=== PATIENT | male | born 1940 | race Caucasian/White ===

== ENCOUNTER → 2016-08-14 | Outpatient (CLI) | payer MEDICARE ==
--- NOTE | 2016-08-14 14:52 | XR ---
AP pelvis HISTORY: Prostate carcinoma staging Frontal view of the pelvis on 2 images. No comparisons Bone mineralization, joint spaces and alignment are relatively maintained, some joint space loss and remodeling present in the left hip compatible with osteoarthritis. Probable vascular calcifications w ithin the pelvis. Degenerative disc changes in the visualized spine. IMPRESSION: Osteoarthritis, degenerative disc disease.
== END | disposition home or self-care (01) ==
LOC: RADXRMAIN 13:00
PROVIDERS: ATTEND Urology
DX: C61 Malignant neoplasm of prostate (principal); M81.0 Age-related osteoporosis without current pathological fracture
CPT/HCPCS: 72170

== ENCOUNTER → 2016-08-22 | Outpatient (CLI) | payer MEDICARE ==
[2016-08-22 10:17] LABS: EKG EKG PERFORMED
[2016-08-22 11:11] LABS: Basophils % (A) 0 %; CH 33.2; CHCM 35.4; Eosinophils # (A) 0.1 k/uL (0-0.7); Eosinophils % (A) 1 %; HCT 45.8 % (39.0-53.0); HDW 2.76; HGB 15.7 gm/dL (13.0-17.5); Luc # (Auto) 0.24; Luc % (Auto) 3; Lymphocytes # (A) 2.3 k/uL (1.0-4.8); Lymphocytes % (A) 26 %; MCH 32.3 pg (25.0-35.0); MCHC 34.2 g/dL (31.0-37.0); MCV 94.4 fL (80.0-100.0); Mean Platelet Volume 8.8; Monocytes # (A) 0.6 k/uL (0-1.0); Monocytes % (A) 7 %; Neutrophils # (A) 5.4 k/uL (1.3-7.7); Neutrophils % (A) 63 %; RBC 4.85 m/uL (4.30-5.90); WBC 8.7 k/uL (3.8-10.6); WBC (Perox) 9.24
[2016-08-22 12:03] LABS: Anion Gap 12 mmol/L; Blood Urea Nitrogen 12 mg/dL (9-20); Calcium 9.4 mg/dL (8.4-10.2); Carbon Dioxide 26 mmol/L (22-30); Chloride 102 mmol/L (98-107); Glucose 153 mg/dL (74-99); Non-African American GFR(MDRD) >60 (>60 ml/min/1.73 sqM); Potassium 4.1 mmol/L (3.5-5.1); Sodium 140 mmol/L (137-145)
== END | disposition home or self-care (01) ==
LOC: LABPAT 09:54
PROVIDERS: ATTEND Urology
DX: Z01.810 Encounter for preprocedural cardiovascular examination (principal); C61 Malignant neoplasm of prostate; I10 Essential (primary) hypertension; E78.00 Pure hypercholesterolemia, unspecified; R35.0 Frequency of micturition
CPT/HCPCS: 80048; 85025; 86850; 86900; 86901; 87086; 93005

== ENCOUNTER 2016-08-29 05:52 | Day surgery (SDC) | payer MEDICARE ==
[2016-08-21 12:36] VITALS: BMI 32.3
[~2016-08-29 05:52] MED LIST: ceFAZolin 2 GM in SODIUM CHLORIDE 0.9% 100 ML IVPB ONE
[2016-08-29] MEDS ORDERED: MIDAZOLAM 2 MG/2 ML VIAL IV PRN (05:57)
[2016-08-29] MEDS ORDERED: ONDANSETRON 4 MG/2 ML VIAL IVP ONE (05:57)
[2016-08-29] MEDS ORDERED: HYDROmorphone 1 MG/ML 1 ML SYRINGE IVP PRN ×2 (05:57→13:19)
[2016-08-29] MEDS ORDERED: HEPARIN SODIUM,PORCINE 5,000 UNIT/ML 1 ML VIAL SQ ONE (06:20)
[2016-08-29] MEDS ORDERED: LIDOCAINE 1% 20 ML VIAL (10MG/ML) FOR IV START INTRADERMA ONE (06:47)
[2016-08-29] MEDS: LACTATED RINGERS 1,000 ML IV SCH (06:49)
[2016-08-29] MEDS ORDERED: NEOSTIGMINE 1 MG/ML 10 ML VIAL ONE (07:32)
[2016-08-29] MEDS ORDERED: HYDROmorphone (PF) 1 MG/ML ONE ×2 (07:32)
[2016-08-29] MEDS ORDERED: PHENYLEPHRINE-0.9% NACL SYG 1 MG/10 ML SYRINGE ONE (07:32)
[2016-08-29] MEDS ORDERED: fentaNYL (PF) 50 MCG/ML 2 ML AMP ONE (07:32)
[2016-08-29] MEDS ORDERED: PROPOFOL 10 MG/ML 20 ML VIAL IV ONE (07:32)
[2016-08-29] MEDS ORDERED: LIDOCAINE 1% INJ 10MG/ML (20 ML MDV) ONE (07:32)
[2016-08-29] MEDS ORDERED: SUCCINYLCHOLINE CHLORIDE 100 MG/5 ML SYR IV ONE (07:32)
[2016-08-29] MEDS ORDERED: GLYCOPYRROLATE 0.2 MG/ML 2 ML VIAL ONE (07:32)
[2016-08-29] MEDS ORDERED: VECURONIUM 10 MG VIAL IV ONE (07:32)
[2016-08-29] MEDS ORDERED: MIDAZOLAM 2 MG/2 ML VIAL ONE (07:32)
[2016-08-29] MEDS ORDERED: ePHEDrine 50 MG/ML 1 ML AMP ONE (07:32)
[2016-08-29] MEDS ORDERED: BUPIVACAINE (PF) 0.25% 30 ML VIAL SQ ONE ×3 (08:45→12:40)
[2016-08-29] MEDS ORDERED: LACTATED RINGERS 1,000 ML IV ONE (10:59)
[2016-08-29] MEDS ORDERED: ONDANSETRON 4 MG/2 ML VIAL IVP PRN (13:17)
--- NOTE | 2016-08-29 13:26 | P.OP ---
Date of Procedure: 08/29/16 Preoperative Diagnosis: Adenocarcinoma of the prostate, clinical stage TIc NX M0 Postoperative Diagnosis: Same Procedure(s) Performed: Right Nerve Sparing Robotic-assisted Laparoscopic Prostatectomy (RALP) With Bilateral Pelvic Lymphadenectomy Anesthesia: NICOLE Surgeon: Kameron Lester Estimated Blood Loss (ml): 800 IV fluids (ml): 1,500 Pathology: other (Prostate, seminal vesicles, bilateral pelvic lymph nodes) Condition: stable Disposition: PACU Indications for Procedure: He is a 76-year-old male with recently diagnosed prostate cancer. He also reports mild lower urinary tract symptoms. I had a lengthy discussion with the patient and his family regarding alternative treatment options. There is considerable longevity in his family, and he has elected to undergo a right nerve-sparing RALP. He understands that this offers him his best chance of long- term cure, along with resolution of his voiding symptoms. However, I made clear to have that most patients his age choose to proceed with radiation therapy or even active surveillance, though he is felt to be a suboptimal candidate for the latter. He is very familiar with alternative treatment options and wishes to proceed with surgery. He is aware of the likelihood of postoperative erectile dysfunction. Operative Findings: No evidence of extraprostatic disease Description of Procedure: The patient was taken in the operating room and placed in the dorsal lithotomy position, with his legs supported in Kayden stirrups. He was carefully positioned on a beanbag for stability. The abdomen and external genitalia were prepped and draped sterilely. A Vanessa catheter was inserted. The Veress needle was passed through the anterior abdominal wall immediately cephalad to the umbilicus, and insufflation was performed to a pressure of 20 mm Hg. Once insufflation was performed, the Veress needle was removed and a supraumbilical incision was made, through which a 12 mm camera port was placed. Under camera guidance, 3 8 mm robotic ports were placed, 2 on the left and one on the right. An additional 12 mm port was placed on the right lateral side for use as an periodontal assistant port. A 5 mm port was placed to the right of the camera port for suction. The patient was placed in Trendelenburg position, and docking was then performed to the da Rogelio system utilizing a 4-arm approach. The abdomen was examined. The sigmoid colon was mobilized out of the pelvis. The peritoneum was incised lateral to the medial umbilical ligaments bilaterally , exposing the pubis. The peritoneum was then incised across the midline, allowing the bladder flap to be taken down. The endopelvic fascia was opened bilaterally, and muscular attachments from the urogenital diaphragm were swept away from the prostate. Bilateral pelvic lymphadenectomies were performed in the standard fashion. The peritoneal incisions were extended in a cephalad direction, and the vas deferens were divided bilaterally. Margins of dissection were the bifurcation of the iliac vessels proximally, the circumflex iliac vein distally, the external iliac artery laterally, and the obturator nerve medially. A combination of sharp and blunt dissection was used. Care was taken to avoid any neurovascular injury, and the use of monopolar electrocautery was avoided immediately adjacent to neurovascular structures. The lymphatic package was clipped distally. No enlarged lymph nodes were encountered. There were no complications. The vesical neck was incised transversely, down to the lumen. The Vanessa catheter was brought out through the anterior vesical neck incision and was used for traction. The posterior aspect of the vesical neck was incised, such that the full-thickness of the vesical neck was divided. The anterior layer of the Denonvilliers fascia was incised, exposing the vas deferens. Each were isolated and divided. Next, each of the seminal vesicles were dissected away from adjacent tissues, and vascular attachments were cauterized and divided. The posterior leaf of Denonvilliers fascia was incised transversely, allowing entry into the plane between the prostate and rectum. With lateral spreading, this plane was developed down to the apex. This exposed the lateral vascular pedicles bilaterally. These were clipped and divided in an antegrade fashion, down to the apex. The use of electrocautery was avoided to prevent thermal damage to the nerves. On the right side, the plane of dissection was immediately adjacent to the prostate to preserve the right neurovascular bundle. On the left side, given the volume of disease, the plane of dissection was away from the prostate and no attempt was made to preserve the left neurovascular bundle The remaining apical attachments were swept away from the prostate. The dorsal venous complex was incised, as well as periurethral tissue. This resulted in more bleeding than is typical, and the dorsal venous complex was sutured using a V lock suture in a running fashion. Excellent hemostasis was attained, and the dissection of the periurethral tissue was completed. At this point, only the urethra remained intact. This was transected immediately distal to the prostatic apex using cold scissors. The specimen was placed within a specimen bag. The pelvis was examined. A small amount of oozing was noted from the right neurovascular bundle. This was controlled using a V lock suture in a figure-of- eight fashion. A V-Loc suture was then used to place the Mat stitch, incorporating the rhabdosphincter and the edge of Denonvilliers fascia. This allowed the bladder to be taken down to the urethra, leaving the vesical neck immediately adjacent to the urethra. The vesicourethral anastomosis was then performed using a V-Loc suture in a running fashion. The vesical neck was larger in caliber than was the urethra, and the remaining anterior bladder defect was closed in a running fashion after completing the vesicourethral anastomosis. An 18-Slovenian Vanessa catheter was then placed and approximately 150 mL of 0.9 normal saline were instilled into the bladder. No extravasation of irrigant from the vesicourethral anastomosis was noted. Hemostasis was noted at this time to be excellent, and it was thus felt that a drain was unnecessary. The patient was returned to the supine position. Undocking was performed, and the specimen bag sutures were passed through the camera port. After removing all the ports and allowing all of the CO2 to be released from the peritoneal cavity, the camera port incision was enlarged to allow removal of the surgical specimen. The fascia of this incision was then closed using 0 Vicryl suture in an interrupted [id number] fashion. The fascia of the 12 mm periodontal assistant port was closed using 0 Vicryl suture. Each of the skin incisions were then closed using 4-0 Monocryl suture in a subcuticular fashion. Marcaine was injected at each of the incision sites. Dermabond was applied to each incision. The Vanessa catheter was connected to gravity drainage. All sponge and needle counts were correct. The patient tolerated the procedure well was taken to the recovery room in stable condition.
[2016-08-29] MEDS ORDERED: HYDROcodone/APAP 5-325MG 1 EACH TAB PO PRN (14:30)
[2016-08-29] MEDS: DEXTROSE 5%-0.45% NACL 1,000 ML IV SCH ×2 (15:56→22:48)
[2016-08-29] MEDS: HEPARIN SODIUM,PORCINE 5,000 UNIT/ML 1 ML VIAL SQ SCH (21:35)
[2016-08-30] MEDS: DEXTROSE 5%-0.45% NACL 1,000 ML IV SCH (05:22)
[2016-08-30 07:04] LABS: Glucose,Whole Blood 246 mg/dL (75-99)
[2016-08-30 07:42] VITALS: BP 136/78; PULSE 102; RESP 20; TEMP 98.2
[2016-08-30] MEDS: HYDROcodone/APAP 5-325MG 1 EACH TAB PO PRN ×2 (07:49→12:51)
[2016-08-30] MEDS: MULTIVITAMINS, THERA 1 EACH TAB PO SCH ×2 (07:51→07:53)
[2016-08-30] MEDS: HEPARIN SODIUM,PORCINE 5,000 UNIT/ML 1 ML VIAL SQ SCH (07:51)
[2016-08-30] MEDS ORDERED: LOSARTAN 50 MG TAB PO SCH (09:00)
[2016-08-30] MEDS ORDERED: ATORVASTATIN 40 MG TAB PO SCH (09:00)
[2016-08-30] MEDS ORDERED: CHLORTHALIDONE 25 MG TAB PO SCH (09:00)
--- NOTE | 2016-08-30 09:11 | P.DS ---
Providers Attending physician: Kameron Lester Primary care physician: Stated None Hospital Course: The patient was admitted to the hospital 08/29/2016 for robotic-assisted prostatectomy by . The surgery was uneventful. His postoperative course is uneventful. He ambulated last night. He is tolerating food this morning. His examination is unremarkable. He'll be discharged home later this morning. He'll resume all his home medication. He is been given a prescription of for [place]. He will follow-up on 09/08/[address] Bennett in ' absence. His condition is good. His pathology report is pending. Plan - Discharge Summary New Discharge Prescriptions: Hydrocodone/Acetaminophen [[place] 7.5-325] 1 each PO Q4HR PRN #30 tab PRN Reason: Pain Control Discharge Medication List Atorvastatin [Lipitor] 40 mg PO DAILY 07/10/14 [History] Chlorthalidone 12.5 mg PO DAILY 07/10/14 [History] Multivitamins, Thera [Multivitamin] 1 each PO DAILY 07/10/14 [History] Aspirin 81 mg PO DAILY 08/23/15 [History] Losartan [Cozaar] 50 mg PO DAILY 08/23/15 [History] Hydrocodone/Acetaminophen [[place] 7.5-325] 1 each PO Q4HR PRN #30 tab 08/30/16 [ Rx] Follow up Appointment(s)/Referral(s): Jimmy Bennett MD [STAFF PHYSICIAN] - 09/08/16 Patient Instructions/Handouts: Robot Assisted Laparoscopic Prostatectomy (DC) Activity/Diet/Wound Care/Special Instructions: Home with Vanessa, leg and overnight bag. Please instruct. Patient may shower. May resume all his medications.
[2016-08-30 12:01] LABS: Glucose,Whole Blood 170 mg/dL (75-99)
== END 2016-08-30 13:17 | disposition home or self-care (01) ==
LOC: OR 05:52 → 4MS4W 13:36 → OR 08-30 13:17
PROVIDERS: ATTEND Urology
DX: C61 Malignant neoplasm of prostate (principal); C77.5 Secondary and unspecified malignant neoplasm of intrapelvic lymph nodes; N40.0 Benign prostatic hyperplasia without lower urinary tract symptoms; I10 Essential (primary) hypertension; E78.00 Pure hypercholesterolemia, unspecified; E66.9 Obesity, unspecified; Z68.32 Body mass index [BMI] 32.0-32.9, adult; Z79.82 Long term (current) use of aspirin; Z79.899 Other long term (current) drug therapy; Z87.891 Personal history of nicotine dependence
CPT/HCPCS: 55866; 38571; 88307; 88309; J2250; J1644 ×2; J2710; J0690; J2405; J2001; J3010; J1170; J2370; J0330; J2704; 86850; 86900; 86901

== ENCOUNTER → 2018-03-19 | Outpatient (CLI) | payer MEDICARE ==
[2018-03-19 07:42] LABS: Appearance,Urine Clear (Clear); Bilirubin,Urine Negative (Negative); Blood,Urine Negative (Negative); Color,Urine Yellow; Glucose,Urine (UA) Negative (Negative); Ketones,Urine Negative (Negative); Leukocyte Esterase,Urine Negative (Negative); Nitrite,Urine Negative (Negative); Protein,Urine Negative (Negative); Specific Gravity,Urine 1.017 (1.001-1.035); Urobilinogen,Urine <2.0 mg/dL (<2.0)
[2018-03-19 08:01] LABS: HCT 40.9 % (39.0-53.0); HGB 13.6 gm/dL (13.0-17.5); MCH 31.7 pg (25.0-35.0); MCHC 33.2 g/dL (31.0-37.0); MCV 95.6 fL (80.0-100.0); Platelet Count 165 k/uL (150-450); RBC 4.28 m/uL (4.30-5.90); RDW 13.1 % (11.5-15.5); WBC 6.5 k/uL (3.8-10.6)
[2018-03-19 08:14] LABS: Partial Thromboplastin Time 25.5 sec (22.0-30.0); Prothrombin Time 9.8 sec (9.0-12.0)
[2018-03-19 08:29] LABS: ALT 35 U/L (21-72); AST 29 U/L (17-59); Albumin 3.9 g/dL (3.5-5.0); Alkaline Phosphatase 77 U/L (38-126); Anion Gap 8 mmol/L; Blood Urea Nitrogen 19 mg/dL (9-20); Calcium 9.5 mg/dL (8.4-10.2); Carbon Dioxide 26 mmol/L (22-30); Chloride 107 mmol/L (98-107); Glucose 112 mg/dL (74-99); Potassium 4.3 mmol/L (3.5-5.1); Sodium 141 mmol/L (137-145); Total Bilirubin 0.9 mg/dL (0.2-1.3); Total Protein 6.7 g/dL (6.3-8.2)
== END | disposition home or self-care (01) ==
LOC: LABPAT 07:22
PROVIDERS: ATTEND Orthopaedic Surgery
DX: Z01.812 Encounter for preprocedural laboratory examination (principal)
CPT/HCPCS: 36415; 80053; 81003; 85027; 85610; 85730; 87070

== ENCOUNTER 2018-03-30 07:00 | Inpatient (IN) | payer MEDICARE ==
[2018-03-19 10:42] VITALS: BMI 28.1
[~2018-03-30 07:00] MED LIST changes: +ACETAMINOPHEN TAB 500 MG TAB PO ONE; +DEXAMETHASONE SOD PHOSPHATE 10 MG/ML 1 ML VIAL IV ONE; +HYDROmorphone 0.5 MG/0.5 ML SYRINGE IVP PRN; +LACTATED RINGERS 1,000 ML IV SCH; +MELOXICAM 7.5 MG TAB PO ONE; +ONDANSETRON 4 MG/2 ML VIAL IVP ONE; +ROPIVACAINE 246.25 MG, EPINEPHrine 0.5 MG, KETOROLAC 30 MG, cloNIDine HCL/PF 80 MCG, WA... MISCELLANE ONE; +TRANEXAMIC ACID 1,000 MG in SODIUM CHLORIDE 0.9% 50 ML IVPB ONE; -ceFAZolin 2 GM in SODIUM CHLORIDE 0.9% 100 ML IVPB ONE; +ceFAZolin IN SWFI 2 GM/20 ML SYRINGE IVP ONE
[2018-03-30] MEDS ORDERED: NALOXONE 0.4 MG/ML 1 ML VIAL IV PRN (08:43)
[2018-03-30] MEDS ORDERED: DIAZEPAM 5 MG TAB PO PRN ×2 (08:43)
[2018-03-30] MEDS ORDERED: hydrOXYzine PAMOATE 25 MG CAP PO PRN (08:43)
[2018-03-30] MEDS ORDERED: MAGNESIUM HYDROXIDE 2,400 MG/10 ML CUP PO PRN (08:43)
[2018-03-30] MEDS ORDERED: ONDANSETRON 4 MG/2 ML VIAL IVP PRN (08:43)
[2018-03-30] MEDS ORDERED: HYDROmorphone 1 MG/ML 1 ML SYRINGE IVP PRN ×3 (08:43)
[2018-03-30 09:07] LABS: Glucose,Whole Blood 125 mg/dL (75-99)
[2018-03-30] MEDS ORDERED: HEPARIN SODIUM,PORCINE 10,000 UNIT/ML 1 ML VIAL ONE (09:15)
[2018-03-30] MEDS ORDERED: diphenhydrAMINE 50 MG/ML 1 ML VIAL ONE (09:15)
[2018-03-30] MEDS ORDERED: SODIUM CHLORIDE 0.9% IRRIG 1,000 ML BTL IRRIGATION ONE (09:15)
[2018-03-30] MEDS ORDERED: PROPOFOL 10 MG/ML 20 ML VIAL IV ONE (09:15)
[2018-03-30] MEDS ORDERED: SODIUM CHLORIDE 0.9% 100 ML BAG ONE (09:15)
[2018-03-30] MEDS ORDERED: TRANEXAMIC ACID 1,000 MG/10 ML VIAL ONE (09:15)
[2018-03-30] MEDS ORDERED: fentaNYL (PF) 50 MCG/ML 2 ML AMP ONE (09:15)
[2018-03-30] MEDS ORDERED: MIDAZOLAM 2 MG/2 ML VIAL ONE (09:15)
[2018-03-30] MEDS ORDERED: ceFAZolin 3,000 MG in SODIUM CHLORIDE 0.9% IRRIGATIO 3,000 ML IRRIGATION ONE (09:49)
[2018-03-30] MEDS ORDERED: LACTATED RINGERS 1,000 ML IV ONE (10:09)
--- NOTE | 2018-03-30 10:43 | P.OP ---
Date of Procedure: 03/30/18 Preoperative Diagnosis: Severe osteoarthritis left hip Postoperative Diagnosis: Severe osteoarthritis left hip Procedure(s) Performed: Left total hip arthroplasty with a direct anterior approach Implants: Pineda and nephew Polarstem size 8 standard Pined[employer] Nephew R3, 3 hole acetabular shell, 54 mm [employer]ined[employer] Nephew reflection 6.5 mm cancellus screw, 20 mm 2 [employer]ined[employer]hew R3, XLPE 20 acetabular liner [employer]ined[employer] Nephew Oxinium femoral head 36 m, +4 All components were press-fit. The articulation is Oxinium on polyethylene. Anesthesia: spinal Surgeon: Petros Padilla Teaching Manager #1: Kim Benoit Estimated Blood Loss (ml): 300 (125 mL returned with Cell Saver) Pathology: other (Femoral head) Condition: stable Disposition: PACU Indications for Procedure: After failure of conservative treatment we discussed the surgical and nonsurgical treatment options at length. Patient wishes to proceed with a total hip arthroplasty with a direct anterior approach. Complications specific to this procedure were discussed at length, including but not limited to infection, leg length discrepancy, dislocation, and nerve injury. Patient is aware of all these complications and informed consent was obtained Operative Findings: The operative findings are consistent with severe osteoarthritis of the left hip Description of Procedure: Patient was seen and evaluated in the preoperative area, consent was reviewed, and the surgical site was marked with a skin marker. Patient was then brought to the operating room and given prophylactic antibiotics intravenously. 1 g of Tranexamic acid was also given. A spinal anesthetic was administered by the anesthesia department. The patient was then placed on the Amber table with the bony prominences well-padded. The hip area was then prepped and draped in usual sterile fashion. A universal timeout was then performed, which confirmed the patient's name, surgical site, ALLERGIES, and procedure being performed. Next the incision site was located at 1 cm distal and 1 cm lateral to the anterior superior iliac spine. The skin and subcutaneous tissues were sharply incised. Incision was carefully dissected down to the fascia overlying the tensor fascia valdemar muscle. This fascia was then incised in line with the incision. Next, using blunt finger dissection, the tensor fascia valdemar muscle was dissected off its investing fascia. The muscle was then carefully retracted laterally with a cobra retractor over the lateral neck of the femur. Next, the circumflex vessels were identified and cauterized using the AquaMantis device. The anterior hip capsule was then exposed. The capsule was then opened and an inverted T fashion. Cobra retractors were then placed intracapsularly. The proximal femur was then visualized. The femoral neck was then osteotomized appropriate level above the lesser trochanter. Small amount of traction was placed with the Amber table. A small wedge of bone was then removed from the remaining femoral head. Next, using a corkscrew femoral head was easily removed from the acetabulum. On gross visual inspection, the femoral head had complete loss of articular cartilage in multiple periarticular osteophytes. Attention was then turned to the acetabulum. the acetabulum was exposed and any remaining labrum was excised. Sequential reaming of the acetabulum was performed using fluoroscopic guidance. When the appropriate size was reached, a trial was then placed. The position and fit of the trial was checked with fluoroscopy. The trial was then removed. Then, using fluoroscopic guidance, the final implant was impacted at 20 of anteversion and 40 of abduction, and fully seated in the acetabulum. 2 screws were then placed in the acetabulum. Again fluoroscopy was used to check position of the screws. Next, the liner was then impacted, with a 20 elevated liner located in the anterior superior quadrant. Component locking was confirmed. Attention was then directed to the femur. With the aid of the Amber table, the femur was externally rotated to approximately 130, extended, and abducted under the opposite leg. A side hook was then placed under the proximal femur, and the side hook elevator was used to elevate the proximal femur. Retractors were then placed. A capsular release was performed, as well as a release of the conjoined tendon, which afforded excellent visualization of the proximal femur. Next, a box osteotome was used to lateralize the proximal femur. A drop forge hand was then used to locate the femoral canal. Sequential broaching was then performed with appropriate size which afforded excellent fixation in the proximal femur. A trial was then placed with appropriate head and neck, and the hip was gently reduced with the aid of the Amber table. Fluoroscopy was then used to check position of the components, as well as to ensure equal leg lengths. The hip was then gently dislocated and the trials were then removed. Final implants were then impacted and the hip was again reduced. Final fluoroscopic x-rays confirmed that the components were in anatomic position, as well as equal leg lengths. The hip was also taken through range of motion, and found to be stable. The hip was then copiously irrigated with antibiotic solution with pulsatile lavage. The hip was then irrigated with Irrisept solution. The soft tissues were then injected with a ropivacaine solution, which consisted of 246.25 mg of ropivacaine, 0.5 mg of epinephrine, 30 mg of Toradol, 80 g of clonidine, and 48.45 mL of sterile water, for a total of 100 mL of fluid injected. A second dose of 1 g of Tranexamic acid was also given. the fascia was then closed with 2-0 strata fix suture. The subcutaneous tissue was closed with 3-0 Vicryl. The subcuticular tissue was closed with 3-0 strata fix suture. The skin was then closed with Dermabond glue and a sterile silver dressing. The patient was then transferred to the recovery room in stable condition. The engineer first assistant TONO Dailey was required due to the complexity of surgery, and the need for skilled manager surgical for positioning, draping, exposure, retraction, and closure of the wound.
[2018-03-30 10:57] VITALS: RESP 16
--- NOTE | 2018-03-30 11:02 | FL ---
Fluoroscopy HISTORY: Left hip arthroplasty 35 seconds fluoroscopy time supplied to the referring clinician. 2 intraoperative C-arm images docum ent the procedure. See dictated report from orthopedic surgery.
--- NOTE | 2018-03-30 11:06 | XR ---
Limited left hip HISTORY: Left hip arthroplasty 2 intraoperative C-arm images document the procedure.
[2018-03-30 11:15] LABS: Glucose,Whole Blood 139 mg/dL (75-99)
--- NOTE | 2018-03-30 11:15 | XR ---
EXAMINATION TYPE: XR Hip Limited LT DATE OF EXAM: 03/30/2018 COMPARISON: NONE HISTORY: Postop TECHNIQUE: One view submitted. FINDINGS: There is a prosthetic hip in near anatomic alignment. There is soft tissue edema and emphysema. IMPRESSION: 1. Postoperative change. Appears in near-anatomic alignment.
[2018-03-30] MEDS: SODIUM CHLORIDE 0.9% 1,000 ML IV SCH ×2 (12:24→23:55)
[2018-03-30] MEDS: ASPIRIN 325 MG TAB PO SCH ×2 (12:24→22:16)
--- NOTE | 2018-03-30 15:11 | P.CONS ---
History of Present Illness - Reason for Consult Consult date: 03/30/18 Medical management - History of Present Illness This is a 77-year-old male patient of Dr. Choudhury with past history for diabetes mellitus type 2, hyperlipidemia, hypertension, prostate cancer status post prostatectomy on Lupron injections under the care of Dr. kristen urban. Patient has been brought into the hospital in a care of Dr. Padilla and is status post left total hip arthroplasty, anterior approach. Patient denies any nausea or vomiting at this time. Pain is controlled. Blood pressure is running 117/58 which patient states this is around his normal. He denies having any chest pain or shortness of breath. Review of Systems All systems: negative Constitutional: Denies chills, Denies fever, Denies poor appetite, Denies weight loss Eyes: denies blurred vision, denies pain Ears, nose, mouth and throat: Denies headache, Denies mouth pain, Denies sore throat Cardiovascular: Denies chest pain, Denies dyspnea on exertion, Denies shortness of breath, Denies syncope Respiratory: Denies cough, Denies cough with sputum, Denies dyspnea, Denies excessive sputum, Denies hemoptysis Gastrointestinal: Denies abdominal pain, Denies diarrhea, Denies loss of appetite, Denies nausea, Denies vomiting Genitourinary: Denies dysuria Musculoskeletal: Denies frequent falls, Denies myalgias Integumentary: Reports wounds, Denies pruritus, Denies rash Neurological: Denies numbness, Denies weakness Psychiatric: Denies anxiety, Denies depression Endocrine: Denies fatigue, Denies weight change Past Medical History Past Medical History: Cancer, Diabetes Mellitus, Hyperlipidemia, Hypertension, Osteoarthritis (OA), Prostate Disorder Additional Past Medical History / Comment(s): hx prostate ca History of Any Multi-Drug Resistant Organisms: None Reported Past Surgical History: Joint Replacement Additional Past Surgical History / Comment(s): BILAT TKA, COLONOSCOPY, PROSTATECTOMY, left total hip arthroplasty anterior approach. Past Anesthesia/Blood Transfusion Reactions: No Reported Reaction Smoking Status: Former smoker Additional Past Alcohol Use History / Comment(s): Patient was a smoker for a brief period in the 1960s at less than one half pack per day. No illicit drug use. Occasional alcohol use. - Past Family History Father Family Medical History: Myocardial Infarction ([place]) Mother Family Medical History: Diabetes Mellitus Additional Family Medical History / Comment(s): Mother has history of hypertension. He denies any history of diabetes cancer or strokes in the family. Brother(s) Additional Family Medical History / Comment(s): Patient has one brother with history of cancer from Agent [place] exposure in [place]. Daughter(s) Additional Family Medical History / Comment(s): She has 5 sons and 1 daughter with no major medical problems. Medications and Allergies Home Medications Medication Instructions Recorded Confirmed Type Atorvastatin [Lipitor] 40 mg PO DAILY 07/10/14 03/30/18 History Multivitamins, Thera [Multivitamin 1 each PO DAILY 07/10/14 03/30/18 History (formulary)] Aspirin 81 mg PO DAILY 08/23/15 03/30/18 History Losartan [Cozaar] 50 mg PO QAM 08/23/15 03/30/18 History Lupron 1 dose INJ Q180D 03/19/18 03/30/18 History metFORMIN HCL [Glucophage] 500 mg PO BID 03/19/18 03/30/18 History Hydrocodone/Acetaminophen [[place] 1 tab PO Q4HR PRN 03/30/18 03/30/18 History 7.5-325] Allergies Allergy/AdvReac Type Severity Reaction Status Date / Time No Known Allergies Allergy Verified 03/19/18 10:34 Physical Exam Vitals: Vital Signs Temp Pulse Pulse Resp BP BP Pulse Ox 03/30/18 11:33 51 L 16 132/64 99 03/30/18 11:20 54 L 16 126/57 95 03/30/18 11:05 51 L 16 124/59 97 03/30/18 10:50 97.5 F L 57 L 16 142/65 97 03/30/18 08:40 98.4 F 72 18 153/71 Intake and Output 03/29/18 03/30/18 03/30/18 22:59 06:59 14:59 Intake Total 1351 Output Total 300 Balance 1051 Intake: IV 1351 Output: Estimated Blood Loss 300 Gen: This is a 77-year-old male. He is in bed and appears to be comfortable and in no acute distress. HEENT: Head is atraumatic, normocephalic. Pupils equal, round. Sclerae is anicteric. NECK: Supple. No JVD. No lymphadenopathy. No thyromegaly. LUNGS: Clear to auscultation. No wheezes or rhonchi. No intercostal retractions. HEART: Regular rate and rhythm. No murmur. ABDOMEN: Soft. Bowel sounds are present. No masses. No tenderness. EXTREMITIES: No pedal edema. No calf tenderness. All dressing in place of the left hip NEUROLOGICAL: Patient is awake, alert and oriented x3. Cranial nerves 2 through 12 are grossly intact. Results Labs: Abnormal Lab Results - Last 24 Hours (Table) 03/30/18 03/30/18 Range/Units 08:50 11:13 POC Glucose (mg/dL) 125 H 139 H (75-99) mg/dL Assessment and Plan Plan: 1. Osteoarthritis status post left total hip arthroplasty, anterior approach. Continue current pain management per Dr. Padilla, PT and OT per orthopedics. Continue incentive spirometry to reduce incidence of atelectasis and hospital- acquired pneumonia. Patient is on aspirin for DVT prophylaxis. 2. Diabetes mellitus type 2. Metformin will be on hold. Continue NovoLog scale before meals and at bedtime. 3. Hypertension. Continue losartan 50 mg every morning, hold for systolic less than 110. 4. Hyperlipidemia. Continue atorvastatin 40 mg daily. 5. History of prostate cancer under the care of Dr. Bennett. Patient is to complete Lupron injection April of this year. 6. GI prophylaxis. Pepcid. Discharge plan: To be determined Impression and plan of care have been directed as dictated by the signing physician. May Cole nurse practitioner acting as scribe for signing physician.
[2018-03-30] MEDS: ceFAZolin IN SWFI 2 GM/20 ML SYRINGE IVP SCH ×2 (15:26→23:54)
[2018-03-30] MEDS: HYDROcodone/APAP 5-325MG 1 EACH TAB PO PRN ×2 (15:26→22:16)
[2018-03-30 17:32] LABS: Glucose,Whole Blood 142 mg/dL (75-99)
[2018-03-30 20:12] LABS: Glucose,Whole Blood 169 mg/dL (75-99)
[2018-03-30] MEDS ORDERED: SENNOSIDES-DOCUSATE SODIUM 1 EACH TAB PO SCH (21:00)
[2018-03-31] MEDS: HYDROcodone/APAP 5-325MG 1 EACH TAB PO PRN ×2 (03:31→09:48)
[2018-03-31 07:16] VITALS: TEMP 98
[2018-03-31] MEDS ORDERED: metFORMIN 500 MG TAB PO SCH (07:30)
[2018-03-31 07:32] LABS: Glucose,Whole Blood 109 mg/dL (75-99)
[2018-03-31 07:50] LABS: Basophils % (A) 0 %; Eosinophils % (A) 1 %; HCT 34.7 % (39.0-53.0); HGB 11.2 gm/dL (13.0-17.5); Lymphocytes # (A) 1.6 k/uL (1.0-4.8); Lymphocytes % (A) 18 %; MCH 31.5 pg (25.0-35.0); MCHC 32.4 g/dL (31.0-37.0); MCV 97.3 fL (80.0-100.0); Mean Platelet Volume 8.6; Monocytes # (A) 0.7 k/uL (0-1.0); Monocytes % (A) 8 %; Neutrophils # (A) 6.3 k/uL (1.3-7.7); Neutrophils % (A) 71 %; Platelet Count 130 k/uL (150-450); RBC 3.57 m/uL (4.30-5.90); RDW 13.2 % (11.5-15.5); WBC 8.8 k/uL (3.8-10.6)
[2018-03-31] MEDS: ASPIRIN 325 MG TAB PO SCH (08:29)
[2018-03-31] MEDS ORDERED: LOSARTAN 50 MG TAB PO SCH (09:00)
[2018-03-31] MEDS ORDERED: ATORVASTATIN 40 MG TAB PO SCH (09:00)
[2018-03-31] MEDS ORDERED: FAMOTIDINE 20 MG TAB PO SCH (09:00)
[2018-03-31] MEDS ORDERED: MELOXICAM 7.5 MG TAB PO SCH (09:00)
--- NOTE | 2018-03-31 09:08 | P.DS ---
Providers Date of admission: 03/30/18 08:23 Expected date of discharge: 03/31/18 Attending physician: Petros Padilla Consults: 03/30/18 08:43 Consult Physician Routine Consulting Provider: Baljinder Choudhury Consult Reason/Comments: medical management Do you want consulting provider notified?: Yes Primary care physician: Baljinder Choudhury - Discharge Diagnosis(es) (1) Primary osteoarthritis of left hip Current Visit: Yes Status: Acute (2) S/P total hip arthroplasty Current Visit: Yes Status: Acute Hospital Course: This is a 77-year-old male with known history of degenerative arthritis of the left hip. The patient presents for evaluation. After discussion and consideration patient elects to proceed with total hip arthroplasty. The patient is seen preoperatively by Dr. Padilla and medically cleared for surgery by their primary care physician. Patient is admitted to [facility] on 03/30/2018 for total hip arthroplasty. The procedures performed without complication or sequelae. The patient is doing well postoperatively. Labs and vital signs are stable on day of discharge. On day of discharge patient's hip incision is healing well. There is minimal erythema. There is no drainage noted at this time. There is minimal soft tissue swelling to the hip and thigh. Patient has full foot and ankle motion without difficulty or pain. Neurovascular status to the left lower extremity is intact. Patient is discharged home in good condition. Please see med rec for accurate list of home medications. Plan - Discharge Summary Discharge Rx Participant: Yes New Discharge Prescriptions: New Aspirin 325 mg PO BID #60 tab HYDROcodone/APAP 5-325MG [[place] 5-325] 1 - 2 tab PO Q4-6H PRN #84 tab PRN Reason: Pain Sennosides [Senokot] 1 tab PO BID #60 tablet No Action Atorvastatin [Lipitor] 40 mg PO DAILY Multivitamins, Thera [Multivitamin (formulary)] 1 each PO DAILY Aspirin 81 mg PO DAILY Losartan [Cozaar] 50 mg PO QAM metFORMIN HCL [Glucophage] 500 mg PO BID Lupron 1 dose INJ Q180D Hydrocodone/Acetaminophen [[place] 7.5-325] 1 tab PO Q4HR PRN PRN Reason: Pain Control Discharge Medication List Atorvastatin [Lipitor] 40 mg PO DAILY 07/10/14 [History] Multivitamins, Thera [Multivitamin (formulary)] 1 each PO DAILY 07/10/14 [ History] Aspirin 81 mg PO DAILY 08/23/15 [History] Losartan [Cozaar] 50 mg PO QAM 08/23/15 [History] Lupron 1 dose INJ Q180D 03/19/18 [History] metFORMIN HCL [Glucophage] 500 mg PO BID 03/19/18 [History] Hydrocodone/Acetaminophen [[place] 7.5-325] 1 tab PO Q4HR PRN 03/30/18 [History] Aspirin 325 mg PO BID #60 tab 03/31/18 [Rx] HYDROcodone/APAP 5-325MG [[place] 5-325] 1 - 2 tab PO Q4-6H PRN #84 tab 03/31/18 [ Rx] Sennosides [Senokot] 1 tab PO BID #60 tablet 03/31/18 [Rx] Follow up Appointment(s)/Referral(s): Petros Padilla DO [Doctor of Osteopathic Medicine] - 2 Weeks Activity/Diet/Wound Care/Special Instructions: Weightbearing as tolerated with walker Leave dressing intact. Dressing may be removed by home care nurse in 10 days. May shower with dressing on. Follow-up with [facility] in 2 weeks, please call with any questions or concerns [phone] Discharge Disposition: HOME WITH HOME HEALTH SERVICES
[2018-03-31 09:19] LABS: Glucose,Whole Blood 156 mg/dL (75-99)
[2018-03-31 09:26] VITALS: PULSE 75
[2018-03-31 09:33] VITALS: BP 138/59
[2018-03-31] MEDS ORDERED: MULTIVITAMINS, THERA 1 EACH TAB PO SCH (12:00)
[2018-03-31 12:06] LABS: Glucose,Whole Blood 159 mg/dL (75-99)
--- NOTE | 2018-04-01 14:17 | P.PN ---
Subjective Progress Note Date: 03/31/18 This is a 77-year-old male patient of Dr. Choudhury with past history for diabetes mellitus type 2, hyperlipidemia, hypertension, prostate cancer status post prostatectomy on Lupron injections under the care of Dr. kristen urban. Patient has been brought into the hospital in a care of Dr. Padilla and is status post left total hip arthroplasty, anterior approach. Patient denies any nausea or vomiting at this time. Pain is controlled. Blood pressure is running 117/58 which patient states this is around his normal. He denies having any chest pain or shortness of breath. 03/31: Patient had a syncopal episode today with complete loss of consciousness. Nursing applied sternal rub. Orthostatics were checked which were negative. Blood sugar was 156. Pulse ox 98%. Patient has been cleared for discharge by orthopedics. Patient has had no further episodes and has been ambulating in the hallway without any lightheadedness or dizziness. Vital signs are stable and patient will be discharged home today. Objective - Vital Signs Vital signs: Vital Signs Temp 98 F 03/31/18 07:15 Pulse 75 03/31/18 09:25 Resp 16 03/31/18 07:15 BP 138/59 03/31/18 09:33 Pulse Ox 98 03/31/18 09:25 Intake & Output 03/30/18 03/31/18 03/31/18 18:59 06:59 18:59 Intake Total 1751 670 Output Total 300 600 300 Balance 1451 70 -300 Weight 91.626 kg Intake: IV 1351 Intake, IV Titration 130 Amount Sodium Chloride 0.9% 1, 130 000 ml @ 65 mls/hr IV . [id number] Rx#:[id number] Oral 400 540 Output: Urine 600 300 Estimated Blood Loss 300 Other: Voiding Method Urinal # Voids 1 # Bowel Movements 0 - Exam Gen: This is a 77-year-old male. He is in bed and appears to be comfortable and in no acute distress. HEENT: Head is atraumatic, normocephalic. Pupils equal, round. Sclerae is anicteric. NECK: Supple. No JVD. No lymphadenopathy. No thyromegaly. LUNGS: Clear to auscultation. No wheezes or rhonchi. No intercostal retractions. HEART: Regular rate and rhythm. No murmur. ABDOMEN: Soft. Bowel sounds are present. No masses. No tenderness. EXTREMITIES: No pedal edema. No calf tenderness. All dressing in place of the left hip NEUROLOGICAL: Patient is awake, alert and oriented x3. Cranial nerves 2 through 12 are grossly intact. - Labs CBC & Chem 7: 03/31/18 06:51 Labs: Abnormal Lab Results - Last 24 Hours (Table) 03/30/18 03/30/18 03/31/18 Range/Units 17:30 20:09 06:51 RBC 3.57 L (4.30-5.90) m/uL Hgb 11.2 L (13.0-17.5) gm/dL Hct 34.7 L (39.0-53.0) % Plt Count 130 L (150-450) k/uL POC Glucose (mg/dL) 142 H 169 H (75-99) mg/dL 03/31/18 03/31/18 03/31/18 Range/Units 07:29 09:17 12:04 RBC (4.30-5.90) m/uL Hgb (13.0-17.5) gm/dL Hct (39.0-53.0) % Plt Count (150-450) k/uL POC Glucose (mg/dL) 109 H 156 H 159 H (75-99) mg/dL Assessment and Plan Plan: 1. Osteoarthritis status post left total hip arthroplasty, anterior approach. Continue current pain management per Dr. Padilla, PT and OT per orthopedics. Continue incentive spirometry to reduce incidence of atelectasis and hospital- acquired pneumonia. Patient is on aspirin for DVT prophylaxis. 2. Diabetes mellitus type 2. Metformin will be on hold. Continue NovoLog scale before meals and at bedtime. 3. Hypertension. Continue losartan 50 mg every morning, hold for systolic less than 110. 4. Hyperlipidemia. Continue atorvastatin 40 mg daily. 5. History of prostate cancer under the care of Dr. Bennett. Patient is to complete Lupron injection April of this year. 6. GI prophylaxis. Pepcid. Discharge plan: Home with [facility] Impression and plan of care have been directed as dictated by the signing physician. May Cole nurse practitioner acting as scribe for signing physician.
== END 2018-03-31 14:00 | disposition home health service (06) | DRG 470 ==
LOC: EDSTATUS 07:00 → 2ORMAIN 08:23 → 3SUR 10:42
PROVIDERS: ADMIT Orthopaedic Surgery; ATTEND Orthopaedic Surgery
PROC: 30233N0 Transfusion of Autologous Red Blood Cells into Peripheral Vein, Percutaneous Approach (ICD-10-PCS; 2018-03-30)
PROC: 0SRB06A Replacement of Left Hip Joint with Oxidized Zirconium on Polyethylene Synthetic Substitute, Uncemented, Open Approach (ICD-10-PCS; principal; 2018-03-30 10:00)
DX: M16.12 Unilateral primary osteoarthritis, left hip (principal); I10 Essential (primary) hypertension; E78.5 Hyperlipidemia, unspecified; E11.9 Type 2 diabetes mellitus without complications; I25.10 Atherosclerotic heart disease of native coronary artery without angina pectoris; M54.12 Radiculopathy, cervical region; I35.1 Nonrheumatic aortic (valve) insufficiency; E55.9 Vitamin D deficiency, unspecified; Z79.84 Long term (current) use of oral hypoglycemic drugs; Z79.82 Long term (current) use of aspirin; Z79.899 Other long term (current) drug therapy; Z88.8 Allergy status to other drugs, medicaments and biological substances; Z91.048 Other nonmedicinal substance allergy status; Z90.79 Acquired absence of other genital organ(s); Z87.891 Personal history of nicotine dependence; Z85.46 Personal history of malignant neoplasm of prostate; Z96.653 Presence of artificial knee joint, bilateral; Z83.3 Family history of diabetes mellitus; Z82.49 Family history of ischemic heart disease and other diseases of the circulatory system; Z80.9 Family history of malignant neoplasm, unspecified; Z84.2 Family history of other diseases of the genitourinary system
CPT/HCPCS: 73501; 85025; 86850; 86891; 86900; 86901

== ENCOUNTER → 2021-01-11 | Outpatient (CLI) | payer MEDICARE ==
--- NOTE | 2021-01-11 15:42 | US ---
EXAMINATION TYPE: US carotid duplex BILAT DATE OF EXAM: 01/11/2021 COMPARISON: NONE CLINICAL HISTORY: R01.1 HEART MURMUR. EXAM MEASUREMENTS: RIGHT: Peak Systolic Velocity (PSV) cm/sec ----- Right CCA: 65.1 ----- Right ICA: 131.8 ----- Right ECA: 122.1 ICA/CCA ratio: 2.0 RIGHT: End Diastole cm/sec ----- Right CCA: 10.1 ----- Right ICA: 30.0 ----- Right ECA: 0.0 LEFT: Peak Systolic Velocity (PSV) cm/sec ----- Left CCA: 68.8 ----- Left ICA: 96.3 ----- Left ECA: 133.4 ICA/CCA ratio: 1.4 LEFT: End Diastole cm/sec ----- Left CCA: 13.8 ----- Left ICA: 30.3 ----- Left ECA: 15.5 VERTEBRALS (direction of flow): Right Vertebral: Antegrade Left Vertebral: Antegrade Rhythm: Normal Mildly elevated velocities. Tortuous vessels. Mild to moderate plaque formation, right greater than l eft. IMPRESSION: 50-69% stenosis of the right ICA by peak systolic velocity criteria. Criteria for Assigning % of Stenosis / Diameter reduction (Estimation based on the indirect measurements of the internal carotid artery velocities (ICA PSV). 1. Normal (no stenosis)=ICA PSV < 125 cm/s: ratio < 2.0: ICA EDV<40 cm/s. 2. Less than 50% stenosis=ICA PSV < 125 cm/s: ratio < 2.0: ICA EDV<40 cm/s. 3. 50 to 69% stenosis=ICA PSV of 125 to 230 cm/s: ration 2.0 ? 4.0: ICA EDV 40-100 cm/s. 4. Greater than 70% stenosis to near occlusion= ICA PSV > 230 cm/s: ratio > 4.0: ICA EDV > 100 cm/s. 5. Near occlusion= ICA PSV velocities may be low or undetectable: variable ratio and ICA EDV. 6. Total occlusion=unable to detect flow.
--- NOTE | 2021-01-15 08:20 | ECHOF ---
Referral Reason:R01.1 heart murmur MEASUREMENTS -------- HEIGHT: 180.3 cm WEIGHT: 95.3 kg BP: IVSd: 1.0 cm (0.6 - 1.1) LVIDd: 5.1 cm (3.9 - 5.3) LVPWd: 1.3 cm (0.6 - 1.1) IVSs: 1.7 cm LVIDs: 2.9 cm LVPWs: 1.8 cm LAESV Index (A-L): 18.12 ml/m Ao Diam: 3.3 cm (2.0 - 3.7) AV Cusp: 2.2 cm (1.5 - 2.6) LA Diam: 3.6 cm (2.7 - 3.8) MV EXCURSION: 17.701 mm (> 18.000) MV EF SLOPE: 124 mm/s (70 - 150) EPSS: 0.7 cm MV E Haris: 0.65 m/s MV DecT: 175 ms MV A Haris: 0.80 m/s MV E/A Ratio: 0.81 AR PHT: 1536 ms RAP: 5.00 mmHg RVSP: 23.28 mmHg FINDINGS -------- This was a technically adequate study. The left ventricular size is normal. There is mild concentric left ventricular hypertrophy. Overa ll left ventricular systolic function is normal with, an EF between 55 - 60 %. The diastolic fillin g pattern is normal for the age of the patient 9.50. The right ventricle is normal in size. The left atrial size is normal. Normal LA size by volume 22+/-6 ml/m2. The right atrial size is normal. The aortic valve is trileaflet and appears structurally normal. There is mild aortic regurgitation. The mitral valve is normal. There is trace mitral regurgitation. The tricuspid valve appears structurally normal. Trace tricuspid regurgitation present. Right merlin tricular systolic pressure is normal at < 35 mmHg. There is no pulmonic regurgitation present. The aortic root size is normal. IVC Not well visulized. There is no pericardial effusion. CONCLUSIONS -------- 1. The left ventricular size is normal. 2. There is mild concentric left ventricular hypertrophy. 3. Overall left ventricular systolic function is normal with, an EF between 55 - 60 %. 4. The diastolic filling pattern is normal for the age of the patient 9.50 5. There is mild aortic regurgitation. 6. There is trace mitral regurgitation. 7. Trace tricuspid regurgitation present. 8. There is no pericardial effusion. REGISTRATION REP: Richa Oswald RDCS
== END | disposition home or self-care (01) ==
LOC: RADECHMAIN 14:40
PROVIDERS: ATTEND Internal Medicine
DX: I65.21 Occlusion and stenosis of right carotid artery (principal); I08.3 Combined rheumatic disorders of mitral, aortic and tricuspid valves
CPT/HCPCS: 93306; 93880

== ENCOUNTER 2021-02-04 08:02 | Day surgery (SDC) | payer MEDICARE ==
[2021-01-31 12:12] VITALS: BMI 29.2
[~2021-02-04 08:02] MED LIST changes: -ACETAMINOPHEN TAB 500 MG TAB PO ONE; -DEXAMETHASONE SOD PHOSPHATE 10 MG/ML 1 ML VIAL IV ONE; -HYDROmorphone 0.5 MG/0.5 ML SYRINGE IVP PRN; +LIDOCAINE 1% (10MG/ML) FOR IV START INTRADERMA PRN; -MELOXICAM 7.5 MG TAB PO ONE; -ONDANSETRON 4 MG/2 ML VIAL IVP ONE; -ROPIVACAINE 246.25 MG, EPINEPHrine 0.5 MG, KETOROLAC 30 MG, cloNIDine HCL/PF 80 MCG, WA... MISCELLANE ONE; -TRANEXAMIC ACID 1,000 MG in SODIUM CHLORIDE 0.9% 50 ML IVPB ONE; -ceFAZolin IN SWFI 2 GM/20 ML SYRINGE IVP ONE
[2021-02-04 08:15] VITALS: RESP 16; TEMP 97
[2021-02-04 08:23] LABS: Glucose,Whole Blood 120 mg/dL (75-99)
[2021-02-04] MEDS ORDERED: PROPOFOL 10 MG/ML 20 ML VIAL IV ONE (08:34)
[2021-02-04 09:04] VITALS: BP 124/63; PULSE 62
--- NOTE | 2021-02-04 09:08 | P.PCN ---
Date of Procedure: 02/04/21 Description of Procedure: BRIEF HISTORY: Patient is a 80-year-old male presenting for outpatient colonoscopy for diverticulitis/diverticulosis and a history of colon polyps. He reports last colonoscopy 6 years ago. He denies any change in bowel habits. No abdominal pain. No family history of colon cancer. PROCEDURE PERFORMED: Colonoscopy. PREOPERATIVE DIAGNOSIS: Diverticulosis/diverticulitis, personal history of colon polyps, he reports last colonoscopy 6 years ago. ESTIMATED BLOOD LOSS: Minimal. IV sedation per Anesthesia. PROCEDURE: After informed consent was obtained, the patient, was brought into the endoscopy unit. IV sedation was administered by Anesthesia under continuous monitoring. Digital rectal examination was normal. Initially the Olympus CF-190 flexible video colonoscope was then inserted in the rectum, gradually advanced into the cecum without any difficulty. Careful examination was performed as the scope was gradually being withdrawn. Ileocecal valve and the appendiceal orifice were visualized and appeared normal. Prep was excellent. Mucosa of the cecum, ascending colon, transverse colon, descending colon, sigmoid colon, and rectum appeared normal, with a few scattered diverticula noted in the sigmoid colon. Retroflexion was performed in the rectum and no lesions were seen, low-grade internal hemorrhoids noted. The patient tolerated the procedure well. IMPRESSION: Normal-appearing colon from rectum to cecum and terminal ileum. Mild sigmoid diverticulosis. Internal hemorrhoids. RECOMMENDATIONS: Findings of this examination were discussed with the patient and his family. Okay to resume diet. Okay to resume medications. Recommend fiber supplementation. No further screening recommended, if any signs or symptoms develop can consider reevaluation with colonoscopy at that time.
== END 2021-02-04 09:37 | disposition home or self-care (01) ==
LOC: ORWHC2ENDO 08:02
PROVIDERS: ATTEND Internal Medicine
DX: K57.30 Diverticulosis of large intestine without perforation or abscess without bleeding (principal); K64.8 Other hemorrhoids; I10 Essential (primary) hypertension; E78.5 Hyperlipidemia, unspecified; E11.9 Type 2 diabetes mellitus without complications; Z79.84 Long term (current) use of oral hypoglycemic drugs; Z85.46 Personal history of malignant neoplasm of prostate; Z79.82 Long term (current) use of aspirin; Z87.891 Personal history of nicotine dependence; Z86.010 Personal history of colon polyps
CPT/HCPCS: 45378; J2704

== ENCOUNTER → 2022-08-05 | Outpatient (CLI) | payer MEDICARE ==
[2022-08-05 07:45] LABS: African American GFR (CKD) >90 (>60 ml/min/1.73 sqM); Blood Urea Nitrogen 15 mg/dL (9-20); Non-African American GFR(CKD) 89 (>60 ml/min/1.73 sqM)
--- NOTE | 2022-08-05 09:33 | CT ---
EXAMINATION TYPE: CT chest w con DATE OF EXAM: 08/05/2022 COMPARISON: HISTORY: Deviated trachea. CT DLP: 428.8 mGycm Automated exposure control for dose reduction was used. TECHNIQUE: CT scan of the chest is performed with IV Contrast, patient injected with 70ml mL of Isovue 300. MIP Images are created on CT scanner and reviewed. 3D reconstructed images are created on an independent workstation and reviewed. FINDINGS: LUNGS: The lungs are grossly clear, there is no concerning consolidative pneumonia identified. Ther e is no pleural effusion or pneumothorax seen. The tracheobronchial tree is patent. There is a 2 mm nodule in the right lower lobe axial image 37. 4 mm right apical nodule axial image 9. There are area s of subsegmental consolidation most compatible with atelectasis. Interlobular septal thickening at t he lung bases likely is related to mild chronic interstitial lung disease. Correlate for mild COPD. MEDIASTINUM: There are no greater than 1 cm hilar or mediastinal lymph nodes. No pericardial effusi on is seen. Trachea may be slightly deviated to the right but there is no evidence to suggest. Subce ntimeter thyroid nodules noted. Atherosclerotic change of the aorta. Coronary artery calcifications OTHER: Hypertrophic and degenerative change of the spine. 3 significant gynecomastia noted. Cholelit hiasis incidentally noted. Low-attenuation liver IMPRESSION: 1. There may be very mild deviation of the trachea to the right but no evidence of mediastinal mass. 2. Coronary artery dense calcification. 3. COPD with some 5 mm pulmonary nodules too small to characterize but likely benign. Twelve-month an nual follow-up CT scan recommended 4. Cholelithiasis. 5. Steatosis.
== END | disposition home or self-care (01) ==
LOC: RADCTMAIN 07:03
PROVIDERS: ATTEND Internal Medicine
DX: J44.9 Chronic obstructive pulmonary disease, unspecified (principal); Q32.1 Other congenital malformations of trachea; I25.10 Atherosclerotic heart disease of native coronary artery without angina pectoris; R91.8 Other nonspecific abnormal finding of lung field; K80.20 Calculus of gallbladder without cholecystitis without obstruction; K76.0 Fatty (change of) liver, not elsewhere classified; J39.8 Other specified diseases of upper respiratory tract
CPT/HCPCS: 82565; 84520; 71260; 36415; Q9967

== ENCOUNTER → 2023-11-09 | Outpatient (CLI) | payer MEDICARE ==
[2023-11-09 16:04] LABS: Prostate Specific Antigen 0.03 ng/mL (0.000-6.500); Testosterone <10.00 ng/dL (86.98-780.10)
== END | disposition home or self-care (01) ==
LOC: LABWHC1 10:14
PROVIDERS: ATTEND Urology
DX: C61 Malignant neoplasm of prostate (principal)
CPT/HCPCS: 36415; 84153; 84403

== ENCOUNTER → 2024-04-26 | Outpatient (CLI) | payer MEDICARE ==
[2024-04-26 15:30] LABS: Prostate Specific Antigen 0.04 ng/mL (0.000-6.500); Testosterone <10.00 ng/dL (86.98-780.10)
== END | disposition home or self-care (01) ==
LOC: LABWHC1 11:21
PROVIDERS: ATTEND Urology
DX: C61 Malignant neoplasm of prostate (principal)
CPT/HCPCS: 36415; 84153; 84403

== ENCOUNTER → 2024-11-01 | Outpatient (CLI) | payer MEDICARE ==
[2024-11-01 15:33] LABS: Prostate Specific Antigen 0.05 ng/mL (0.000-6.500); Testosterone 16.4 ng/dL (86.98-780.10)
== END | disposition home or self-care (01) ==
LOC: LABWHC1 07:20
PROVIDERS: ATTEND Urology
DX: C61 Malignant neoplasm of prostate (principal)
CPT/HCPCS: 36415; 84153; 84403